=== PATIENT | male | born 2000 | race Native Hawaiian/Other Pacific Islander ===

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

== ENCOUNTER → 2018-12-10 20:06 | Outpatient (CLI) | payer BC | END | disposition home or self-care (01) | LOC: AMB 20:06 | DX: Z04.1 Encounter for examination and observation following transport accident (principal) ==

== ENCOUNTER 2018-12-13 14:27 | Outpatient (CLI) | payer BC | END 2018-12-13 19:18 | disposition home or self-care (01) | LOC: RAD 14:27 | DX: M54.2 Cervicalgia (principal); S13.4XXA Sprain of ligaments of cervical spine, initial encounter; V89.2XXA Person injured in unspecified motor-vehicle accident, traffic, initial encounter ==

== ENCOUNTER 2019-09-01 14:02 | Outpatient (CLI) | payer BC, OTHER | END 2019-09-01 20:48 | disposition home or self-care (01) | LOC: LAB 14:02 | DX: Z20.828 Contact with and (suspected) exposure to other viral communicable diseases (principal) | CPT/HCPCS: 87635; G2023; U00003 ==